=== PATIENT | male | born 1960 | race Caucasian/White ===

== ENCOUNTER 2023-11-27 09:04 | Emergency (ER) | payer BC, SELFPAY ==
[2023-11-27] VITALS (11 sets, daily range): BP systolic 95–129; BP diastolic 60–86; BMI 32.0
--- NOTE | 2023-11-27 09:11 | ED.CVA ---
History of Present Illness
General
Chief Complaint: CVA/TIA Symptoms
Source: patient and spouse
Exam Limitations: none
Time Seen by Provider: 11/27/23 09:10
Nursing documentation reviewed up to this point in time: agreed with
Onset of Stroke Symptoms
Onset of symptoms known: Yes
Date of onset of symptoms: 11/27/23
Time of onset of symptoms: 08:30
Travel History
Have you had any contact with someone who has COVID-19?: No
Do you have any symptoms of coronavirus? Fever > 100 degrees, chills, cough, shortness of breath, sore throat, loss of taste or smell, muscle aches, or headache?: No
History of Present Illness
History of Present Illness:
63-year-old male presents emergency department complaining of left arm pain and weakness, as well as left leg weakness and 8:30 AM. It has somewhat improved. He states he had chest pain 2 days ago but denies any at this point.
Past History
Past History
ED Past Medical History: GERD and Other (Chronic syncopal episodes and chronic fatigue syndrome, autonomic dysfunction); Negative CAD
ED Past Surgical History: None
Social History
Tobacco: Non-smoker
Alcohol: Occasional
Personal:
Living: with family
Family History
Family History: Negative Early CAD, CAD or Sudden
Review of Systems
Review of Systems
Allergies reviewed?: Yes
All Other Systems: Not applicable
Constitutional: Reports no symptoms
EENT: Reports no symptoms
Respiratory: Reports no symptoms
Cardiac: Reports chest pain
ABD/GI: Reports no symptoms
: Reports no symptoms
Musculoskeletal: Reports no symptoms
Skin: Reports no symptoms
Neurological: Reports weakness and numbness
Endocrine: Reports no symptoms
Hematologic/Lymphatic: Reports no symptoms
Psychiatric: Reports no symptoms
Phy Exam
Physical Exam
Physical Exam:
Physical Exam
General: no apparent distress, not acutely ill
Neck: supple. no meningeal signs. normal posterior pharynx
Heart: s1/s2 regular rate and rhythm, no murmur. equal radial
pulses.
HEENT: Pupils equal round reactive to light, EOMI
Lungs: no acute respiratory distress. clear bilaterally
Abdomen: normal bowel sounds. not tender. no CVAT
Neuro: alert and oriented. no focal neurological deficits cranial nerves II through XII intact
Skin: no rash
Psychiatric: well kept. interactive and cooperative
Extremities: no edema. no calf tenderness. negative homans. good distal pulses
Course
Orders/Labs/Results
Orders:
Orders
11/27/23 09:09
EKG [Electrocardiogram (*1)] Urgent
Reason for Study: Fatigue / Weakness
EKG- Treatment ONCE
11/27/23 09:10
CT Head W/o Cont STROKE ALERT Urgent
Comment:
Reason For Exam: left side weakness
Bedside Glucose- Treatment ONCE
Cardiac Monitoring- Treatment ONCE
Cardiac Monitoring- Treatment ONCE
IV Insert/Care/Rem.- Treatment PRN
Vital Signs As Directed
Frequency: Other
Weight As Directed
Frequency: Once
Comment: ZERO STRETCHER SCALE FOR ACCURATE WEIGHT
Pulse Ox/cont/shift [RESP] Stat
Quantity: 1
11/27/23 09:11
Electrocardiogram (*1) Stat
Reason for Study: Other
Other Reason for Exam: neuro symptoms
EKG- Treatment ONCE
11/27/23 09:17
Add On- LAB Routine
Comments:: Please add to today's labs or draw as routine
Tests Added?: TSH reflex, Ferritin, Folate, Vit. B12, ESR, EtOH, UDS
11/27/23 09:19
Alcohol Urgent
Complete Blood Count/With Diff Urgent
Comprehensive Metabolic Panel Urgent
Erythrocyte Sed Rate Urgent
Comment: ADD ON
Ferritin Urgent
Comment: ADD ON
Folate Urgent
Comment: ADD ON
PTT Urgent
Prothrombin Time Urgent
TSH Reflex To Free T4 Urgent
Comment: ADD ON
Troponin I Urgent
Vitamin B12 Urgent
Comment: ADD ON
11/27/23 09:20
Urine Drug Abuse Screen Routine
Date Specimen was Collected: 11/27/23
Time Specimen was Collected: 09:20
11/27/23 09:29
Prochlorperazine [Compazine] 10 mg IV NOW STA
11/27/23 11:01
Add On- LAB Routine
Tests Added?: carbamazepine level
11/27/23 11:42
Tegretol (Carbamazepine) Urgent
Abnormal Lab Results
11/27/23 11/27/23 11/27/23
09:14 09:19 11:42
MCH 33.6 H pg
(27.0-31.0)
Absolute Lymphs (auto) 1.0 L 10^3/uL
(1.2-3.4)
Lymphocytes % 17.2 L %
(20.5-51.1)
Monocytes % 11.2 H %
(1.7-9.3)
Chloride 109 H mmol/L
(98-107)
Glucose 103 H mg/dl
(70-99)
Carbamazepine 3.9 L ug/ml
(4-12)
POC Glucose 107 H mg/dl
(70-99)
11/27/23 09:19
11/27/23 09:19
Vital Signs
Initial and Last Documented VS:
Initial Vital Signs
BP
120/83
11/27/23 09:09
Last Documented Vital Signs
Temp Pulse Resp BP Pulse Ox
98.3 F 62 15 95/71 94
11/27/23 09:10 11/27/23 12:30 11/27/23 12:30 11/27/23 12:30 11/27/23 12:30
MDM/Problems Addressed
Differential Diagnosis Includes:
CVA, dysautonomia
MDM/Problems Addressed:
63-year-old male with near syncope episode, no signs of seizure or dysrhythmia. Seen by Dr. Gilliam, neurology, who agrees. Stable for discharge.
Chronic conditions affecting care: Other (Autonomic dysfunction)
Acute Exacerbation and/or Progression of Chronic Illness: Other (Autonomic dysfunction)
*Radiology
Radiology exam reviewed: radiology read reviewed (CT head no acute findings)
*Pulse Oximetry
Patient hypoxic: no
*EKG
Interpreted by ED Provider?: Yes
EKG Intrepretation Date: 11/27/23
EKG Intrepretation Time: 09:13
Interpretation: normal
Comparison EKG: no changes
Heart Rate: 67
Rate: normal
Rhythm: sinus
[place]: normal axis
Interval: normal interval
QRS Pattern: normal QRS
Ischemia: no ischemia
*Guzzler Builder Interpretation
Rate: normal
Interpretation: normal
Heart Rate: 66
Rhythm: sinus
*Critical Care Note
Total Time (30-74mins, 75-104mins- exclusive of procedures): Not Applicable
Data Reviewed
Review of Other/Old Records Reveals: Labs (Prior hemoglobin 16.1, similar to today's 15.8)
Source: records
Patient Management
Discussion with other providers: Client Technologies Analyst (Dr. Gilliam, neurology)
Escalation/DeEscalation of care consider admission/obs:
Admit not indicated
ED Attending Note
-
Portions of this chart may have been created with voice recognition software.� Occasional wrong word or��sound alike� substitutions may have occurred due to the inherent limitations of voice recognition software.
Discharge Plan
Departure
Patient Disposition: Home (Routine Discharge)
Date of Disposition: 11/27/23
Time of Disposition: 12:21
Patient with high blood pressure during this ER visit?: No
Condition: Good
Discharge Problem:
Near syncope
Instructions: Near Fainting (DC)
Prescriptions:
No Action
nadolol 20 MG tablet
20 mg PO BID
citalopram 20 MG tablet
20 mg PO HS
carbamazepine 100 mg capsule, ER multiphase 12 hr
100 mg PO BID
docusate sodium [Colace] 100 mg Capsule
100 mg PO BID PRN (Reason: constipation)
rosuvastatin 5 mg tablet
5 mg PO DAILY
Referrals:
Rosina Mercado MD [Family Provider] - Call in 1-3 days for appt
Interventions
Interventions:
*Risk Screen - Suicide Last Done: 11/27/23 09:16
*General Assessment Last Done: 11/27/23 09:16
*Neglect/Abuse Screening Last Done: 11/27/23 09:16
ED- Fall Risk Assessment Last Done: 11/27/23 09:16
*ED COVID-19 Vaccine History Last Done: 11/27/23 09:10
*Nursing Disposition Last Done: 11/27/23 12:47
ED- Pulmonary Assessment Last Done: 11/27/23 09:16
ED- Neurological Assessment Last Done: 11/27/23 09:16
ED- Cardiac Assessment Last Done: 11/27/23 09:16
ED Swallowing Screen Last Done: 11/27/23 09:16
Discharge Date and Time
Discharge Date/Time: 11/27/23 12:48
[2023-11-27 09:16] LABS: Glucose - Point of Care 107 mg/dl (70-99)
--- NOTE | 2023-11-27 09:23 | CON.NEURO4 ---
Addendum entered and electronically signed by Ghulam Gilliam MD 11/27/23 13:09:
Studies reviewed.
I have personally examined the patient. I reviewed and agree with the POLICY ADVISOR's Note.
My addenda:
Awake, alert, interactive. No acute distress. Prefers to keep eyes closed.
Speech intact.
Follows 2-step requests w/o difficulty. No tremor.
Extra-ocular movements grossly intact.
Facial movements full and symmetric. Hearing intact to normal conversational volume.
Normal UE movements bilaterally.
Neck: full ROM.
Chest: no dyspnea
Heart: no JVD
Ext: (-) Clubbing, (-) Cyanosis, (-) Edema
IMPRESSIONS/RECOMMENDATIONS:
Abrupt onset of generalized lethargy, recurrent across decades
Unlikely that this represents narcolepsy. Dysautonomia has been treated without a clear change in the number of events that have been taken place in the past. More likely the patient is experiencing either a somatization disorder or migraine with
aura
Provide prochlorperazine for the patient's headache
At this time for stroke and therefore no additional neuroimaging is clearly needed at this time
Continue patient's usual carbamazepine, follow level
D/W patient / family
Will continue to follow patient as needed.
Original Note:
Documented by User: Marietta Mayen NP 11/27/23 11:10
Consultation - Neurology 4
-
CONSULTING PHYSICIAN: Ghulam Gilliam MD
REFERRING PHYSICIAN: ER/Dr. Pelayo
DICTATED BY: CARL Stafford
DATE/TIME OF REQUEST: 11/27/23
DATE/TIME OF CONSULTATION: 11/27/23
Reason for Consultation: Stroke Alert
History of Present Illness:
This is a 63-year-old male who has presented to the hospital with report of left arm pain, left-sided weakness, and headache. Patient has a history of dysautonomia for decades. His reports that he has 'spells' in which he feels dizzy, loses
consciousness, and has generalized weakness/lethargy/ataxia lasting anywhere from 1-10 days. These spells come in cycles about every two weeks. He was evaluated by our Neurology service in 2013 as a stroke alert for one of these episodes that was
associated with aphasia. EEG, MRI brain, and TTE were unremarkable at that time. He was followed by several doctors for these episodes but they have since retired so he is followed by his PCP only currently. He is taking nadolol and midodrine for
treatment.
This morning (11/27/23), patient reports waking up in his usual state at 0630. At 0815, he reports suddenly developing severe left arm pain, followed by a headache, and left arm/leg weakness. He has never had left-sided symptoms or arm pain with his
previous episodes, prompting his to bring him to the ER for evaluation. CT head was obtained and is negative for any acute abnormalities. NIHSS is 0. He is not a candidate for TNK/IAT due to absence of any focal deficits concerning for stroke,
NIHSS <6, and no evidence of LVO. He endorses mild shortness of breath, nausea, and dizziness. He denies vision changes, photo/phonophobia, speech/swallow difficulty, numbness, chest pain, and palpitations. He reports one isolated episode of chest
pain two days ago and some diarrhea yesterday. He also has trigeminal neuralgia and was recently switched from gabapentin to carbamazepine.
Past Medical History: Dysautonomia, trigeminal neuralgia, GERD
Surgical History: Denies
Family History: Reviewed and noncontributory.
Social History: Occasional alcohol. Denies tobacco and illicit drug use.
Allergies: No known allergies.
Home Medications: See below.
Review of Symptoms:
Patient denies any fever, chest pain, or symptoms.
�Per the HPI.�All systems are reviewed negative except above.
Physical Exam:
The patient is afebrile, abdomen is nondistended, breathing is unlabored, skin is warm and dry, no edema.
NIH Stroke Scale:
I performed the NIH stroke scale on the patient on 11/27/23 at 0915. The patient scored 0 points on the NIH stroke scale assessment, which were assigned as follows: See below.
Neurologic Examination:
The patient is drowsy, opens eyes to voice. He is oriented x 3. He is able to follow commands and answer questions appropriately. There is no aphasia or dysarthria. On cranial nerve assessment, pupils are 3 mm bilateral, round and reactive to light
and accommodation. Visual magana are full. Extraocular movements are intact. Facial sensations are intact and bilaterally symmetrical, there is no facial asymmetry. Hearing is intact bilaterally to normal conversation volume. Tongue palate and uvula
are midline. Sternocleidomastoid strengths are full bilaterally. Motor strengths are 5/5 bilateral upper and lower extremities on medical research [place] scale. There is no drift or involuntary movement noted. Deep tendon reflexes are 2+ bilateral
upper and lower extremities and Babinski is absent bilaterally. Sensations of touch, temperature and vibration are intact and bilaterally symmetrical. There was no extinction noted on double simultaneous stimulation. Coordination is ataxic by finger
to nose bilaterally.
Lab Results: See below.
Neuro Imaging:
1. CT Head 11/27/23: No acute intracranial abnormality noted. ASPECTS Score: 10.
Differentials for the patient's presentation include:
1. Recurrent episode of presyncope fluctuation of usual symptoms.
2. Headache
3. New medication carbamazepine possibly contributing to symptoms.
4. Low concern for TIA, stroke, or seizure.
5. Possible functional neurological disorder.
Patient has the following risk factors for their symptoms: Recurrent dysautonomic episodes, HLD
IV Tenecteplase/IAT candidacy: He is not a candidate for TNK/IAT due to absence of any focal deficits concerning for stroke, NIHSS <6, and no evidence of LVO.
Recommendations:
-Carbamazepine level ordered/pending.
-Provide prochlorperazine 10mg IV x1 now.
-Checking blood work for metabolic abnormalities.
-Do not see a role for further neurological imaging at this time.
-Consider neuropsychological testing as an outpatient.
-Cardiac evaluation by ER.
Discussed patient care with: Dr. Gilliam, the patient, patient's spouse
NIH Stroke Score
Subsequent NIH Scale
Date of Subsequent NIH Scale: 11/27/23
Time of Subsequent NIH Scale: 09:15
NIH Stroke Score
Level of Consciousness: 0 - Alert
LOC Questions: 0-Answers both correctly
LOC Commands: 0-Performs both correctly
Best Horizontal Gaze: 0-Normal
Visual [place]: 0=Normal, no visual loss
Facial Palsy: 0=Normal, symmetrical
Motor - Right Arm: 0=No drift 10 seconds
Motor - Left Arm: 0=No drift 10 seconds
Motor - Right Le-No drift 5 seconds
Motor - Left Le-No drift 5 seconds
Limb Ataxia: 0-Absent
Sensation: 0-Normal
Best Language: 0-No aphasia
Dysarthria: 0-Normal
Extinction and Inattention: 0-No abnormality
Total Score:: 0
Vital Signs and Labs
-
Vital Signs and Labs:
Vital Signs
Temp Pulse Resp BP Pulse Ox
98.3 F 65 16 115/71 93
11/27/23 09:10 11/27/23 11:00 11/27/23 11:00 11/27/23 11:00 11/27/23 11:00
Lab Results
11/27/23 09:19
11/27/23 09:19
PT 14.3 Sec (11.4-14.6) 11/27/23 09:19
INR 1.13 11/27/23 09:19
APTT 27.7 Sec (23.4-35.0) 11/27/23 09:19
Sodium 138 mmol/L (135-145) 11/27/23 09:19
Potassium 4.2 mmol/L (3.5-5.1) 11/27/23 09:19
BUN 12 mg/dl (9-20) 11/27/23 09:19
Glucose 103 mg/dl (70-99) H 11/27/23 09:19
Calcium 9.2 mg/dl (8.4-10.2) 11/27/23 09:19
Medications
-
Home Medications
Medication Instructions Recorded
nadolol 20 mg tablet 20 mg PO BID dysautonomia 11/10/13
citalopram 20 mg tablet 20 mg PO HS 11/25/19
carbamazepine 100 mg 100 mg PO BID trigeminal neuralgia 11/27/23
capsule,extended release [id number]
docusate sodium 100 mg capsule 100 mg PO BID PRN constipation 11/27/23
(Colace)
rosuvastatin 5 mg tablet 5 mg PO DAILY 11/27/23

Documented by User: Ghulam Gilliam MD 11/27/23 12:59
Consultation - Neurology 4
-
CONSULTING PHYSICIAN: Ghulam Gilliam MD
REFERRING PHYSICIAN: ER/Dr. Pelayo
DICTATED BY: CARL Stafford
DATE/TIME OF REQUEST: 11/27/23
DATE/TIME OF CONSULTATION: 11/27/23
Reason for Consultation: Stroke Alert
History of Present Illness:
This is a 63-year-old male who has presented to the hospital with report of left arm pain, left-sided weakness, and headache. Patient has a history of dysautonomia for decades. His reports that he has 'spells' in which he feels dizzy, loses
consciousness, and has generalized weakness/lethargy/ataxia lasting anywhere from 1-10 days. These spells come in cycles about every two weeks. He was evaluated by our Neurology service in 2013 as a stroke alert for one of these episodes that was
associated with aphasia. EEG, MRI brain, and TTE were unremarkable at that time. He was followed by several doctors for these episodes but they have since retired so he is followed by his PCP only currently. He is taking nadolol and midodrine for
treatment.
This morning (11/27/23), patient reports waking up in his usual state at 0630. At 0815, he reports suddenly developing severe left arm pain, followed by a headache, and left arm/leg weakness. He has never had left-sided symptoms or arm pain with his
previous episodes, prompting his to bring him to the ER for evaluation. CT head was obtained and is negative for any acute abnormalities. NIHSS is 0. He is not a candidate for TNK/IAT due to absence of any focal deficits concerning for stroke,
NIHSS <6, and no evidence of LVO. He endorses mild shortness of breath, nausea, and dizziness. He denies vision changes, photo/phonophobia, speech/swallow difficulty, numbness, chest pain, and palpitations. He reports one isolated episode of chest
pain two days ago and some diarrhea yesterday. He also has trigeminal neuralgia and was recently switched from gabapentin to carbamazepine.
Past Medical History: Dysautonomia, trigeminal neuralgia, GERD
Surgical History: Denies
Family History: Reviewed and noncontributory.
Social History: Occasional alcohol. Denies tobacco and illicit drug use.
Allergies: No known allergies.
Home Medications: See below.
Review of Symptoms:
Patient denies any fever, chest pain, or symptoms.
�Per the HPI.�All systems are reviewed negative except above.
Physical Exam:
The patient is afebrile, abdomen is nondistended, breathing is unlabored, skin is warm and dry, no edema.
NIH Stroke Scale:
I performed the NIH stroke scale on the patient on 11/27/23 at 0915. The patient scored 0 points on the NIH stroke scale assessment, which were assigned as follows: See below.
Neurologic Examination:
The patient is drowsy, opens eyes to voice. He is oriented x 3. He is able to follow commands and answer questions appropriately. There is no aphasia or dysarthria. On cranial nerve assessment, pupils are 3 mm bilateral, round and reactive to light
and accommodation. Visual magana are full. Extraocular movements are intact. Facial sensations are intact and bilaterally symmetrical, there is no facial asymmetry. Hearing is intact bilaterally to normal conversation volume. Tongue palate and uvula
are midline. Sternocleidomastoid strengths are full bilaterally. Motor strengths are 5/5 bilateral upper and lower extremities on medical research [place] scale. There is no drift or involuntary movement noted. Deep tendon reflexes are 2+ bilateral
upper and lower extremities and Babinski is absent bilaterally. Sensations of touch, temperature and vibration are intact and bilaterally symmetrical. There was no extinction noted on double simultaneous stimulation. Coordination is ataxic by finger
to nose bilaterally.
Lab Results: See below.
Neuro Imaging:
1. CT Head 11/27/23: No acute intracranial abnormality noted. ASPECTS Score: 10.
Differentials for the patient's presentation include:
1. Recurrent episode of presyncope fluctuation of usual symptoms.
2. Headache
3. New medication carbamazepine possibly contributing to symptoms.
4. Low concern for TIA, stroke, or seizure.
5. Possible functional neurological disorder.
Patient has the following risk factors for their symptoms: Recurrent dysautonomic episodes, HLD
IV Tenecteplase/IAT candidacy: He is not a candidate for TNK/IAT due to absence of any focal deficits concerning for stroke, NIHSS <6, and no evidence of LVO.
Recommendations:
-Carbamazepine level ordered/pending.
-Provide prochlorperazine 10mg IV x1 now.
-Checking blood work for metabolic abnormalities.
-Do not see a role for further neurological imaging at this time.
-Consider neuropsychological testing as an outpatient.
-Cardiac evaluation by ER.
Discussed patient care with: Dr. Gilliam, the patient, patient's spouse
NIH Stroke Score
NIH Stroke Score
Total Score:: 0
[2023-11-27 09:26] LABS: % Basophils 1.4 % (0-2); % Eosinophils 2.7 % (0-6); % Immature Granulocytes 0.4 % (0-0.5); % Lymphocytes 17.2 % (20.5-51.1); % Monocytes 11.2 % (1.7-9.3); % Neutrophils 67.1 % (42.2-75.2); Absolute Basophils 0.1 10^3/uL (0-0.2); Absolute Eosinophils 0.2 10^3/uL (0-0.7); Absolute Monocytes 0.6 10^3/uL (0.1-0.6); Absolute Neutrophils 3.8 10^3/uL (1.4-6.5); Hematocrit 43.4 % (39.0-52.0); Hemoglobin 15.8 g/dL (13.0-18.0); Mean Corp Hgb Conc. 36.4 g/dL (33.0-37.0); Mean Corpuscular Hgb 33.6 pg (27.0-31.0); Mean Corpuscular Volume 92.3 fL (80.0-94.0); Mean Platelet Volume 8.9 fL (7.4-10.4); Nucleated Red Blood Cells % 0 % (-); Platelet Count 296 10^3/uL (130-400); Red Cell Dist. Width 11.6 % (11.5-14.5); White Blood Cell Count 5.6 10^3/uL (4.8-10.8)
[2023-11-27 09:35] LABS: INR 1.13; PT 14.3 Sec (11.4-14.6)
[2023-11-27 09:36] LABS: APTT 27.7 Sec (23.4-35.0)
[2023-11-27] MEDS: COMPAZINE 10 MG IV (09:37)
[2023-11-27 09:54] LABS: Troponin I < 0.012 ng/ml
[2023-11-27 10:11] LABS: ALT (SGPT) 29 U/L (0-50); AST (SGOT) 32 U/L (17-59); Albumin 4.4 g/dl (3.5-5.0); Alkaline Phosphatase 58 U/L (38-126); Blood Urea Nitrogen 12 mg/dl (9-20); Calcium 9.2 mg/dl (8.4-10.2); Carbon Dioxide 24 mmol/L (22-30); Chloride 109 mmol/L (98-107); Estimated Creatinine Clearance 118 ml/min; Glucose 103 mg/dl (70-99); Potassium 4.2 mmol/L (3.5-5.1); Sodium 138 mmol/L (135-145); Total Bilirubin 0.8 mg/dl (0.2-1.3); Total Protein 7.2 g/dl (6.3-8.2); eGFR > 60.00
[2023-11-27 10:16] LABS: Alcohol None Detected
[2023-11-27 10:52] LABS: TSH Reflex To Free T4 2.24 uIU/ml (0.47-4.68)
[2023-11-27 11:18] LABS: Erythrocyte Sed Rate 2 mm/hour (0-20)
[2023-11-27 11:26] LABS: Folate 16.6 ng/ml (2.76-20)
[2023-11-27 12:20] LABS: Tegretol (Carbamazepine) 3.9 ug/ml (4-12)
[2023-11-27 15:24] LABS: Vitamin B12 453 pg/ml (239-931)
== END 2023-11-27 12:48 | disposition home or self-care (01) ==
LOC: EMR 09:04
PROVIDERS: EMERGENCY PHYSICIAN Emergency Medicine; FAMILY PHYSICIAN Family Medicine
DX: R55 Syncope and collapse (principal); K21.9 Gastro-esophageal reflux disease without esophagitis
CPT/HCPCS: 99284; 96374; 70450; 80053; 80156; 82077; 82607; 82728; 82746; 82962; 84443; 84484; 85025; 85610; 85652; 85730; 93005